=== PATIENT | female | born 1950 | race African-American/Black ===

== ENCOUNTER → 2016-12-11 | Outpatient (CLI) | payer OTHER ==
[~2016-12-11] VITALS: Ht 165.1 cm; Wt 84.4 kg
[~2016-12-11] MED LIST: ASPIRIN EC325 MG PO; BYSTOLIC 5 MG5 M1 PO; EDARBYCLOR 40-1 EAC1 PO; FOLIC ACID 40400 MCG PO; HYDROXYCHLOROQ200 M1 PO; METHOTREXATE 22.5 MG PO; OMEPRAZOLE40 MG PO
--- NOTE | ~2016-12-11 | CATHLAB ---
[facility] [address] [place] [address] INVASIVE PROCEDURE REPORT Name: FE CROFT Room #: REG Daniel#: [id number] Admission: 12/11/16 Attend Phys: Ramesh Anaya, Discharge: Date of : 50 Date of Service: 12/11/16 1336 Report #: [id number] THIS REPORT FOR: //name// CC: Sebastián Anaya [facility] PROCEDURES: Left ventriculography, coronary angiography, abdominal aortography. DESCRIPTION OF PROCEDURE: The patient brought to the catheterization lab with labile hypertension and a nuclear test suggesting ischemic dilatation, possible left main. Right groin prepped and draped in sterile manner. A 6-Grenadian sheath in the right femoral artery. Straight pigtail catheter performed a single MUSA ventriculogram and AP aortogram. FL4 left coronary system, FR4 right coronary system, hyperdynamic LV function. The aorta was tortuous, but no aneurysm. Renal arteries widely patent. FL4 shows minimal plaquing at the distal LAD, but otherwise widely patent and a dominant right with the JR4 widely patent large vessel. The patient tolerated well. Mynx closure was utilized without complication. No hematoma formation, chest pain, no ectopy. HEMODYNAMICS: Aortic 138/68, LV 138/4. IMPRESSION: 1. Essentially normal coronary anatomy with mild diffuse distal left anterior descending disease. No indication for intervention. 2. Hyperdynamic left ventricular function, EF 65%. 3. Abdominal aorta is tortuous without aneurysm. Single renal arteries are widely patent. RECOMMENDATIONS: Continue aggressive risk factor modification. Continue with current blood pressure medicine of Bystolic 10 and Edarbyclor 40/.5. No lifting for 48 hours. No lying in tub, Jacuzzi or montelongo for a week. Follow up with Dr. Trevino is scheduled in the next month. Follow up with myself in 6 months. Sodium restriction. Regular aerobic activity after 48 hours. By: 1336 30 Ramesh Anaya MD, FACC /nt
[2016-12-11 07:18] VITALS: BP 127/71
[2016-12-11 07:32] LABS: HEMATOCRIT 33.5 % (37.0-47.0); HEMOGLOBIN 10.9 gm/dL (12.0-15.0); MCH 26.1 pg (26.0-34.0); MCHC 32.6 g/dL (28.0-37.0); MCV 80.1 fL (80.0-100.0); RBC 4.18 mil/uL (4.20-5.00); RDW 15.6 % (10.5-14.5); WBC 6.2 thou/uL (4.0-11.0)
[2016-12-11 07:45] LABS: CREATININE 1.2 mg/dL (0.6-1.3); POTASSIUM 3.5 mmol/L (3.5-5.1)
== END ==
LOC: CATH 12-10 11:30
PROVIDERS: Internal Medicine Cardiovascular Disease
DX: I71.4 Abdominal aortic aneurysm, without rupture (principal); I10 Essential (primary) hypertension; M06.9 Rheumatoid arthritis, unspecified; K21.9 Gastro-esophageal reflux disease without esophagitis